=== PATIENT | male | born 1940 | race Hispanic/Latino ===

== ENCOUNTER → 2018-01-21 | Outpatient (CLI) | payer OTHER | END | disposition home or self-care (01) | LOC: SHCH 09:24 | PROVIDERS: ATTEND Internal Medicine Cardiovascular Disease | DX: R09.89 Other specified symptoms and signs involving the circulatory and respiratory systems (principal) | CPT/HCPCS: 93880 ==

== ENCOUNTER → 2018-01-27 | Outpatient (CLI) | payer OTHER | END | disposition home or self-care (01) | LOC: EDUNIT# 11:00 → SHCH 11:22 | PROVIDERS: ATTEND Internal Medicine Cardiovascular Disease | DX: I34.0 Nonrheumatic mitral (valve) insufficiency (principal); I35.8 Other nonrheumatic aortic valve disorders | CPT/HCPCS: 93306 ==

== ENCOUNTER 2018-05-08 06:38 | Day surgery (SDC) | payer OTHER ==
[2018-05-05 11:35] LABS: BASOPHILS % (AUTO) 0.8 % (0.0-5.0); EOSINOPHILS % (AUTO) 3.9 % (0.0-8.0); HEMATOCRIT 36.8 % (42-54); LYMPHOCYTES % (AUTO) 15.3 % (21.0-51.0); MEAN CORPUSCULAR HEMOGLOBIN 28.5 pg (27.0-33.0); MEAN CORPUSCULAR HGB CONC 32.3 g/dL (32.0-36.0); MEAN CORPUSCULAR VOLUME 88.2 fL (79-99); MONOCYTES % (AUTO) 7.9 % (3.0-13.0); NEUTROPHILS % (AUTO) 72.1 % (40.0-77.0); PLATELET COUNT (AUTO) 165 K/uL (130-400); RED BLOOD CELL COUNT(AUTO) 4.17 MIL/uL (4.50-6.20); RED CELL DISTRIBUTION WIDTH 14.6 % (11.0-15.5); WHITE BLOOD COUNT (AUTO) 8.5 K/uL (4.8-10.8)
[2018-05-05 11:41] VITALS: BP 119/74
[2018-05-05 11:55] LABS: CREATININE 1.6 mg/dL (0.5-1.5); POTASSIUM 4.4 mmol/L (3.5-5.1)
[2018-05-05 12:41] LABS: APPEARANCE,URINE Cloudy (CLEAR); BILIRUBIN,URINE Negative (NEGATIVE); COLOR,URINE Yellow (YELLOW); GLUCOSE, URINE (UA) Negative (NEGATIVE); KETONES,URINE Negative (NEGATIVE); LEUKOCYTE ESTERASE ,URINE Large (NEGATIVE); NITRATE,URINE Positive (NEGATIVE); OCCULT BLOOD,URINE Large (NEGATIVE); PH,URINE 5.5 (5.0-8.0); PROTEIN,URINE 300 (NEGATIVE); UROBILINOGEN,URINE 0.2 mg/dL (0.2-1.0)
[2018-05-05 12:52] LABS: BACTERIA,URINE Moderate /HPF (None Seen); SQUAMOUS EPITHELIAL CELL,UR Rare /HPF (0-2); WBC,URINE 26-50 /HPF (0-1)
[~2018-05-08] VITALS: Ht 167.6 cm; Wt 85.9 kg
[2018-05-08] VITALS (18 sets, daily range): BP systolic 105–132; BP diastolic 63–83
[~2018-05-08 06:38] MED LIST: APIX2.5T PO; ATOR20TA65 PO; CHOL100040 PO; DOCU100T PO; FERS325 PO; FINA5TAB41 PO; GABA-529 PO; GENTAMICIN 80 MG/NS 100 ML PB 100 ML IV SCH; GLUC-236 PO; LATA7.5D OU; LEVO500T2 PO; LEVO50TA11 PO; METO25TA6 PO; MULTIVITAMIN PO; OMEP20TA25 PO; PREG75 PO; SERT100T12 PO; TAMS0.4C32 PO
[2018-05-08] MEDS: CEFTRIAXONE SODIUM 1 GM IVP SCH ×2 (08:00→10:25)
[2018-05-08] MEDS ORDERED: SODIUM CHLORIDE 0.9% 1000ML 1,000 ML IV ONE (08:15)
[2018-05-08] MEDS ORDERED: PROPOFOL 10 MG/ML 20ML VIAL IV ONE (08:58)
[2018-05-08] MEDS ORDERED: ONDANSETRON HCL 4 MG/2 ML VIAL ONE (08:58)
[2018-05-08] MEDS ORDERED: MIDAZOLAM HCL 1 MG/ML 2ML VIAL ONE (08:58)
[2018-05-08] MEDS ORDERED: DEXAMETHASONE SOD PHOSPHATE 10MG/ML 1ML VIAL ONE (08:58)
[2018-05-08] MEDS ORDERED: LIDOCAINE PF 2% 5ML ABBOJECT ONE (08:58)
[2018-05-08] MEDS ORDERED: NEOSTIGMINE 5MG/5ML SYR IV ONE (08:59)
[2018-05-08] MEDS ORDERED: FENTANYL CITRATE PF 50 MCG/1 ML 2ML VIAL ONE (08:59)
[2018-05-08] MEDS ORDERED: ROCURONIUM BROMIDE 10MG/1ML 5ML VL ONE (09:05)
[2018-05-08] MEDS ORDERED: KETAMINE 50MG/ML SYRINGE 50 MG/ML DISP.SYRIN IV ONE (10:13)
[2018-05-08] MEDS ORDERED: EPHEDRINE SULFATE 50 MG/ML AMPULE ONE (10:16)
== END 2018-05-08 15:25 | disposition home or self-care (01) ==
LOC: DAH 06:38
PROVIDERS: ATTEND Urology
DX: N21.0 Calculus in bladder (principal); N40.1 Benign prostatic hyperplasia with lower urinary tract symptoms; R33.8 Other retention of urine; R31.9 Hematuria, unspecified; E11.9 Type 2 diabetes mellitus without complications; I48.2 Chronic atrial fibrillation; I10 Essential (primary) hypertension; G51.0 Bell's palsy; E78.5 Hyperlipidemia, unspecified; Z90.49 Acquired absence of other specified parts of digestive tract; Z98.890 Other specified postprocedural states
CPT/HCPCS: 36415; 52318; 52648; 71045; 80048; 81001; 82360; 82948 ×2; 85025; 85610; 85730; 87077; 87088; 87186; 88300; 88305; 93005; 96365; A4218; A4354; A4358; A4600; C1758; J0696; J1100; J1580; J2001; J2250; J2405; J2704; J2710; J3010; J3490 ×3; J7030; J7120

== ENCOUNTER 2019-05-23 13:21 | Observation (INO) | payer OTHER ==
[~2019-05-23] VITALS: Ht 170.2 cm; Wt 85.5 kg
[~2019-05-23 13:21] MED LIST changes: -APIX2.5T PO; -GENTAMICIN 80 MG/NS 100 ML PB 100 ML IV SCH
[2019-05-23 13:59] LABS: EOSINOPHILS % (AUTO) 0.6 % (0.0-8.0); HEMATOCRIT 47.1 % (42-54); LYMPHOCYTES % (AUTO) 14.1 % (21.0-51.0); MEAN CORPUSCULAR HEMOGLOBIN 30.8 pg (27.0-33.0); MEAN CORPUSCULAR HGB CONC 34.3 g/dL (32.0-36.0); MONOCYTES % (AUTO) 7.4 % (3.0-13.0); NEUTROPHILS % (AUTO) 76.9 % (40.0-77.0); NUCLEATED RED BLOOD CELLS 0.1 % (0.0-0.19); PLATELET COUNT (AUTO) 145 K/uL (130-400); RED BLOOD CELL COUNT(AUTO) 5.23 MIL/uL (4.50-6.20); RED CELL DISTRIBUTION WIDTH 14.3 % (11.0-15.5); WHITE BLOOD COUNT (AUTO) 11.6 K/uL (4.8-10.8)
[2019-05-23 14:03] LABS: INR 1.07 (0.85-1.15); PARTIAL THROMBOPLASTIN TIME 31.1 SEC (26.3-35.5); PROTHROMBIN TIME 11.2 SEC (9.6-11.6)
[2019-05-23 14:05] LABS: CARBON DIOXIDE 29 mmol/L (21-32); CHLORIDE 100 mmol/L (101-111); CREATININE 1.5 mg/dL (0.5-1.5); GLOMERULAR FILTR. RATE CALC 48 mL/min (>60); GLUCOSE,RANDOM 124 mg/dL (70-105); POTASSIUM 4.4 mmol/L (3.5-5.1); SODIUM SERUM 134 mmol/L (136-145); UREA NITROGEN, BLOOD 32 mg/dL (7-18)
[2019-05-23 14:11] LABS: ALBUMIN 4.2 g/dL (3.5-5.0); BILIRUBIN,TOTAL 0.9 mg/dL (0.2-1.0); TOTAL PROTEIN, SERUM 8.1 g/dL (6.0-8.3)
[2019-05-23 14:25] LABS: ASPARTATE AMINOTRANSFERASE 26 U/L (10-37)
[2019-05-23 14:54] LABS: ALANINE AMINOTRANSFERASE < 12 U/L (12-78)
[2019-05-23] MEDS ORDERED: LACTATED RINGERS 1000ML 1,000 ML IV ONE (18:19)
[2019-05-23] MEDS: LACTATED RINGERS 1000ML 1,000 ML IV SCH (18:30)
[2019-05-23] MEDS ORDERED: ACETAMINOPHEN 325 MG TAB PO PRN (18:30)
[2019-05-23] MEDS ORDERED: ONDANSETRON HCL 4 MG/2 ML VIAL IVP PRN (18:30)
[2019-05-23] MEDS ORDERED: PANTOPRAZOLE 40 MG/VIAL IVP SCH (19:00)
[2019-05-23] MEDS ORDERED: APIX2.5T PO (20:34)
[2019-05-23] MEDS ORDERED: METO25TA3 PO (20:34)
[2019-05-23] MEDS ORDERED: GLIP2.5T2 PO (20:34)
[2019-05-23 20:58] VITALS: BP 165/109
[2019-05-23 22:08] LABS: HEMATOCRIT 42.5 % (42-54)
[2019-05-23 23:00] VITALS: BP 157/84
[2019-05-23] MEDS ORDERED: FLU VACC QS2019-20 36MOS UP/PF 60 MCG/0.5 ML ML IM ONE (23:15)
[2019-05-24 03:00] VITALS: BP 151/80
[2019-05-24 06:26] LABS: HEMATOCRIT 44.4 % (42-54); MEAN CORPUSCULAR HEMOGLOBIN 30.6 pg (27.0-33.0); MEAN CORPUSCULAR HGB CONC 33.6 g/dL (32.0-36.0); MEAN CORPUSCULAR VOLUME 91.1 fL (79-99); NUCLEATED RED BLOOD CELLS 0.1 % (0.0-0.19); PLATELET COUNT (AUTO) 112 K/uL (130-400); RED BLOOD CELL COUNT(AUTO) 4.88 MIL/uL (4.50-6.20); RED CELL DISTRIBUTION WIDTH 14.2 % (11.0-15.5)
[2019-05-24] MEDS: LACTATED RINGERS 1000ML 1,000 ML IV SCH (07:09)
[2019-05-24 08:00] VITALS: BP 143/93
[2019-05-24] MEDS ORDERED: PANTOPRAZOLE 40 MG/VIAL IVP SCH (09:00)
[2019-05-24 09:02] LABS: CREATININE 1.5 mg/dL (0.5-1.5); MAGNESIUM 1.7 mg/dL (1.80-2.40); PHOSPHORUS 3.7 mg/dL (2.5-4.9)
[2019-05-24 09:46] LABS: HEMATOCRIT 43.9 % (42-54)
[2019-05-24] MEDS: PANTOPRAZOLE SODIUM 40 MG TABLET.DR PO SCH ×2 (10:45→17:00)
[2019-05-24 10:47] LABS: POTASSIUM 4.5 mmol/L (3.5-5.1)
[2019-05-24 11:19] LABS: BASOPHILS % (AUTO) 1.2 % (0.0-5.0); EOSINOPHILS % (AUTO) 0.5 % (0.0-8.0); LYMPHOCYTES % (AUTO) 9.8 % (21.0-51.0); MEAN CORPUSCULAR HEMOGLOBIN 30.8 pg (27.0-33.0); MEAN CORPUSCULAR HGB CONC 34.1 g/dL (32.0-36.0); MEAN CORPUSCULAR VOLUME 90.4 fL (79-99); MONOCYTES % (AUTO) 6.9 % (3.0-13.0); NEUTROPHILS % (AUTO) 81.6 % (40.0-77.0); NUCLEATED RED BLOOD CELLS 0.1 % (0.0-0.19); PLATELET COUNT (AUTO) 116 K/uL (130-400); RED BLOOD CELL COUNT(AUTO) 4.87 MIL/uL (4.50-6.20); WHITE BLOOD COUNT (AUTO) 8.3 K/uL (4.8-10.8)
[2019-05-24 11:36] LABS: INR 1.07 (0.85-1.15); PROTHROMBIN TIME 11.2 SEC (9.6-11.6)
[2019-05-24 11:46] LABS: CREATININE 1.4 mg/dL (0.5-1.5)
[2019-05-24 11:50] VITALS: BP 138/90
[2019-05-24 12:49] LABS: POTASSIUM 4.2 mmol/L (3.5-5.1)
[2019-05-24 15:34] LABS: HEMATOCRIT 43.5 % (42-54)
--- NOTE | 2019-05-24 15:37 | NUR ---
INITIAL: Met with pt and son Shaheed this afternoon to discuss dcp. Per pt/son prior to admission pt was living alone. He uses a rollator for ambulation and is independent w ADLs. Pt has at home a sh chair and cane. Pt feels safe and comfortable to return home at mt. CM to continue to follow and wait for Md recommendations. Addendum: 05/24/19 at 1538 by LUCY DEAN Amended: Links added.
[2019-05-24 16:00] VITALS: BP 151/87
[2019-05-24] MEDS ORDERED: PEG 3350/NA SULF,BICARB,CL/KCL 4000 ML SOLN PO SCH (17:00)
[2019-05-24] MEDS ORDERED: GLUCAGON 1MG KIT 1 MG ML IM PRN (17:15)
[2019-05-24] MEDS ORDERED: POTASSIUM CHLORIDE 20 MEQ ERTAB PO PRN (17:15)
[2019-05-24] MEDS ORDERED: DEXTROSE 50%-WATER 50 ML DISP.SYRIN IV PRN (17:15)
[2019-05-24] MEDS ORDERED: POTASSIUM CHLORIDE 10% ELIXIR 20 MEQ/15 ML UDCUP PO PRN (17:15)
[2019-05-24] MEDS ORDERED: POTASSIUM CHLORIDE 20MEQ/100ML 100 ML IV PRN (17:15)
[2019-05-24 20:00] VITALS: BP 167/90
[2019-05-24] MEDS: METOPROLOL TARTRATE 25 MG TAB PO SCH (20:54)
[2019-05-24] MEDS: ATORVASTATIN CALCIUM 20 MG TABLET PO SCH (20:54)
[2019-05-24] MEDS: SERTRALINE HCL 50 MG TABLET PO SCH (20:54)
[2019-05-24] MEDS: INSULIN HUMULIN R 100 UNIT/ML 3ML SQ SCH (21:00)
[2019-05-24 21:20] LABS: HEMATOCRIT 44.1 % (42-54)
[2019-05-25] VITALS (13 sets, daily range): BP systolic 116–152; BP diastolic 68–96
[2019-05-25] MEDS: LACTATED RINGERS 1000ML 1,000 ML IV SCH ×2 (03:57→14:58)
[2019-05-25 05:29] LABS: HEMATOCRIT 45.1 % (42-54); MEAN CORPUSCULAR HGB CONC 34.3 g/dL (32.0-36.0); MEAN CORPUSCULAR VOLUME 90.4 fL (79-99); PLATELET COUNT (AUTO) 127 K/uL (130-400); RED BLOOD CELL COUNT(AUTO) 4.99 MIL/uL (4.50-6.20); RED CELL DISTRIBUTION WIDTH 14.2 % (11.0-15.5); WHITE BLOOD COUNT (AUTO) 7.3 K/uL (4.8-10.8)
[2019-05-25 05:44] LABS: CREATININE 1.5 mg/dL (0.5-1.5); POTASSIUM 4.5 mmol/L (3.5-5.1)
[2019-05-25] MEDS: INSULIN HUMULIN R 100 UNIT/ML 3ML SQ SCH ×4 (06:36→21:00)
[2019-05-25] MEDS: PANTOPRAZOLE SODIUM 40 MG TABLET.DR PO SCH ×2 (06:36→17:57)
[2019-05-25] MEDS: Cholecalciferol (Vitamin D3) 1,000 UNIT PO SCH (09:00)
[2019-05-25] MEDS: LEVOTHYROXINE 50 MCG TABLET PO SCH (09:00)
[2019-05-25] MEDS: METOPROLOL TARTRATE 25 MG TAB PO SCH ×2 (09:00→22:51)
[2019-05-25 09:04] LABS: HEMATOCRIT 43.5 % (42-54)
--- NOTE | 2019-05-25 11:04 | NUR ---
COLONOSCOPY Taken for procedure at this time.
[2019-05-25] MEDS ORDERED: PROPOFOL 10 MG/ML 20ML VIAL IV ONE (12:14)
--- NOTE | 2019-05-25 14:00 | NUR ---
CONFIRMED DCP PLAN W DAUGHTER SPOKE TO KEZIA AT [facility]- PT LIVES ALONE BUT RIGHT NEXT DOOR TO SON; BOTH SON AND DAUGHTER VIGILANT AND SEE PT OFTEN THROUGHOUT THE DAY- BOTH FEEL COMFORTABLE TO PROVIDE EXTRA CARE IF NEEDED DCP REMAINS HOME
--- NOTE | 2019-05-25 14:00 | NUR ---
CONFIRMED DC PLAN WITH DAUGHTER DAUGHTER KEZIA STATES TH PT, ALTHOUGH HE LIVES ALONE, IS SEEN FREQUENTLY THROUGHOUT THE DAY BY HERSELF AND HER BROTHER- PTS HOME IS RIGHT NEXT DOOR. SHE FEELS ABLE TO PROVIDE INCREASED MONITORING IF NEEDED. DCP REMAINS TO HOME
[2019-05-25 15:53] LABS: BASOPHILS % (AUTO) 0.8 % (0.0-5.0); EOSINOPHILS % (AUTO) 0.9 % (0.0-8.0); HEMATOCRIT 42.8 % (42-54); LYMPHOCYTES % (AUTO) 11.4 % (21.0-51.0); MEAN CORPUSCULAR HEMOGLOBIN 30.6 pg (27.0-33.0); MEAN CORPUSCULAR HGB CONC 33.9 g/dL (32.0-36.0); MEAN CORPUSCULAR VOLUME 90.2 fL (79-99); MONOCYTES % (AUTO) 7.9 % (3.0-13.0); PLATELET COUNT (AUTO) 124 K/uL (130-400); RED BLOOD CELL COUNT(AUTO) 4.75 MIL/uL (4.50-6.20); RED CELL DISTRIBUTION WIDTH 14.1 % (11.0-15.5)
[2019-05-25 16:06] LABS: CREATININE 1.4 mg/dL (0.5-1.5); POTASSIUM 4.1 mmol/L (3.5-5.1)
[2019-05-25 16:18] LABS: INR 1.06 (0.85-1.15); PROTHROMBIN TIME 11.1 SEC (9.6-11.6)
--- NOTE | 2019-05-25 16:31 | NUR ---
CARDIOLOGY CONSULT Dr. Cardozo was notified of consult that patient has AFib and has GI bleed and that his eliquis is on hold. He took patient's name and room number.
[2019-05-25] MEDS ORDERED: PEG 3350/NA SULF,BICARB,CL/KCL 4000 ML SOLN PO SCH (17:00)
--- NOTE | 2019-05-25 18:02 | NUR ---
GOLYTELY Started preparation. Patient compliant. Drinking golytely with no issues.
[2019-05-25 22:11] LABS: HEMATOCRIT 43.7 % (42-54)
[2019-05-25] MEDS: SERTRALINE HCL 50 MG TABLET PO SCH (22:50)
[2019-05-25] MEDS: ATORVASTATIN CALCIUM 20 MG TABLET PO SCH (22:51)
[2019-05-26] VITALS (23 sets, daily range): BP systolic 99–161; BP diastolic 62–99
[2019-05-26] MEDS: LACTATED RINGERS 1000ML 1,000 ML IV SCH ×2 (04:12→13:35)
[2019-05-26] MEDS: PANTOPRAZOLE SODIUM 40 MG TABLET.DR PO SCH ×2 (05:49→13:34)
[2019-05-26] MEDS: INSULIN HUMULIN R 100 UNIT/ML 3ML SQ SCH ×4 (05:50→21:00)
--- NOTE | 2019-05-26 07:50 | NUR ---
COLONOSCOPY Patient taken for procedure this morning. Stable.
[2019-05-26] MEDS: Cholecalciferol (Vitamin D3) 1,000 UNIT PO SCH (09:00)
[2019-05-26] MEDS: LEVOTHYROXINE 50 MCG TABLET PO SCH (09:00)
[2019-05-26] MEDS ORDERED: PROPOFOL 10 MG/ML 20ML VIAL IV ONE ×2 (09:17)
[2019-05-26] MEDS: METOPROLOL TARTRATE 25 MG TAB PO SCH ×2 (13:34→21:49)
[2019-05-26 15:24] LABS: HEMATOCRIT 41.8 % (42-54)
[2019-05-26] MEDS: ATORVASTATIN CALCIUM 20 MG TABLET PO SCH (21:49)
[2019-05-26] MEDS: SERTRALINE HCL 50 MG TABLET PO SCH (21:49)
[2019-05-27] MEDS: LACTATED RINGERS 1000ML 1,000 ML IV SCH (02:45)
[2019-05-27 03:28] VITALS: BP 140/78
[2019-05-27 06:06] LABS: BASOPHILS % (AUTO) 0.6 % (0.0-5.0); EOSINOPHILS % (AUTO) 1.6 % (0.0-8.0); HEMATOCRIT 43.2 % (42-54); LYMPHOCYTES % (AUTO) 8.7 % (21.0-51.0); MEAN CORPUSCULAR HEMOGLOBIN 30.4 pg (27.0-33.0); MEAN CORPUSCULAR HGB CONC 33.7 g/dL (32.0-36.0); MEAN CORPUSCULAR VOLUME 90.2 fL (79-99); MONOCYTES % (AUTO) 9.1 % (3.0-13.0); PLATELET COUNT (AUTO) 107 K/uL (130-400); RED BLOOD CELL COUNT(AUTO) 4.79 MIL/uL (4.50-6.20); WHITE BLOOD COUNT (AUTO) 7.7 K/uL (4.8-10.8)
[2019-05-27] MEDS: INSULIN HUMULIN R 100 UNIT/ML 3ML SQ SCH ×3 (07:30→12:30)
--- NOTE | 2019-05-27 07:30 | NUR ---
as per report from pm nurse can be discharged and will have a colonoscopy as outpatient.
[2019-05-27 08:00] VITALS: BP 149/85
--- NOTE | 2019-05-27 08:00 | NUR ---
AM SHIFT ASSESSMENT.
[2019-05-27] MEDS: Cholecalciferol (Vitamin D3) 1,000 UNIT PO SCH (09:00)
[2019-05-27] MEDS: LEVOTHYROXINE 50 MCG TABLET PO SCH (09:00)
[2019-05-27] MEDS: PANTOPRAZOLE SODIUM 40 MG TABLET.DR PO SCH (09:38)
[2019-05-27] MEDS: METOPROLOL TARTRATE 25 MG TAB PO SCH (09:38)
[2019-05-27] MEDS ORDERED: PANT40TA PO (09:47)
[2019-05-27 11:52] VITALS: BP 151/88
--- NOTE | 2019-05-27 12:00 | NUR ---
has had no evidence of any rectal bleeding.
--- NOTE | 2019-05-27 14:20 | NUR ---
DISCHARGED USING TEACH BACK. RX. FOR PROTONIX CALLED IN TO [facility]. SEVERAL MD. APPT. MADE FOR PT. PT. AND FAMILY MEMBER WERE GIVEN INST AND VERBALIZED UNDERSTANDING.
== END 2019-05-27 15:10 | disposition home or self-care (01) ==
LOC: EDH 13:21 → INTOOBSV 17:10 → OBSVTOIN 17:10 → EDHIP 17:10 → 3DH 20:14
PROVIDERS: ADMIT Internal Medicine Critical Care Medicine; ATTEND Internal Medicine Critical Care Medicine
DX: K92.2 Gastrointestinal hemorrhage, unspecified (principal); I48.20 Chronic atrial fibrillation, unspecified; D62 Acute posthemorrhagic anemia; K62.1 Rectal polyp; D12.3 Benign neoplasm of transverse colon; K64.8 Other hemorrhoids; E78.5 Hyperlipidemia, unspecified; E78.00 Pure hypercholesterolemia, unspecified; E11.9 Type 2 diabetes mellitus without complications; R19.7 Diarrhea, unspecified; I10 Essential (primary) hypertension; N40.0 Benign prostatic hyperplasia without lower urinary tract symptoms; Z87.891 Personal history of nicotine dependence; Z79.01 Long term (current) use of anticoagulants; Z79.899 Other long term (current) drug therapy; Z88.8 Allergy status to other drugs, medicaments and biological substances; Z23 Encounter for immunization
CPT/HCPCS: 36415 ×5; 45378; 45380; 45385; 74176; 80048 ×4; 80053; 82270; 82948 ×11; 83735; 84100; 85014 ×8; 85018 ×8; 85025 ×4; 85027 ×2; 85610 ×3; 85730; 88305; 90471; 96360; 96361 ×4; 96372; 99284; A4215; A4221; A4600; A4606; A4615 ×2; G0378 ×94; J1815; J2704 ×3; J7120 ×7; C9113; G0008

== ENCOUNTER 2021-01-21 17:23 | Inpatient (IN) | payer OTHER ==
[~2021-01-21] VITALS: Ht 167.6 cm; Wt 83.3 kg
[~2021-01-21 17:23] MED LIST changes: +APIX2.5T PO; -DOCU100T PO; -FERS325 PO; -FINA5TAB41 PO; -GABA-529 PO; +GLIP2.5T2 PO; -GLUC-236 PO; -LEVO500T2 PO; +METO25TA3 PO; -METO25TA6 PO; -MULTIVITAMIN PO; -OMEP20TA25 PO; +PANT40TA PO; -PREG75 PO; +SERT-440 PO; -SERT100T12 PO; -TAMS0.4C32 PO
[2021-01-21 18:13] VITALS: BP 159/98
[2021-01-21 18:27] LABS: BASOPHILS % (AUTO) 0.4 % (0.0-5.0); EOSINOPHILS % (AUTO) 0.6 % (0.0-8.0); HEMATOCRIT 47.8 % (42-54); LYMPHOCYTES % (AUTO) 10.9 % (21.0-51.0); MEAN CORPUSCULAR HEMOGLOBIN 29.9 pg (27.0-33.0); MEAN CORPUSCULAR HGB CONC 33.1 g/dL (32.0-36.0); MEAN CORPUSCULAR VOLUME 90.5 fL (79-99); MONOCYTES % (AUTO) 6.8 % (3.0-13.0); NEUTROPHILS % (AUTO) 80.7 % (40.0-77.0); PLATELET COUNT (AUTO) 142 K/uL (130-400); RED BLOOD CELL COUNT(AUTO) 5.28 MIL/uL (4.50-6.20); RED CELL DISTRIBUTION WIDTH 13.7 % (11.0-15.5); WHITE BLOOD COUNT (AUTO) 12.4 K/uL (4.8-10.8)
[2021-01-21] MEDS ORDERED: PANTOPRAZOLE 40 MG/VIAL IVP ONE (18:30)
[2021-01-21] MEDS ORDERED: SODIUM CHLORIDE 0.9% 500ML 500 ML IV ONE ×2 (18:30→18:55)
[2021-01-21] MEDS ORDERED: ONDANSETRON HCL 4 MG/2 ML VIAL IVP ONE (18:30)
[2021-01-21 18:42] LABS: CREATININE 1.6 mg/dL (0.5-1.5)
[2021-01-21 18:57] LABS: INR 1.09 (0.85-1.15); PROTHROMBIN TIME 11.8 SEC (9.6-11.6)
[2021-01-21 18:59] LABS: ALBUMIN 4.1 g/dL (3.5-5.0); BILIRUBIN,TOTAL 0.7 mg/dL (0.2-1.0); TOTAL PROTEIN, SERUM 8.2 g/dL (6.0-8.3)
[2021-01-21 19:01] LABS: CREATINE KINASE, TOTAL 62 U/L (21-232); MYOGLOBIN 47 ng/mL (10-92); TROPONIN I < 0.04 ng/mL (0.00-0.06)
[2021-01-21 20:17] LABS: APPEARANCE,URINE Clear (CLEAR); BILIRUBIN,URINE Negative (NEGATIVE); COLOR,URINE Yellow (YELLOW); GLUCOSE, URINE (UA) Negative (NEGATIVE); KETONES,URINE Negative (NEGATIVE); LEUKOCYTE ESTERASE ,URINE Negative (NEGATIVE); NITRATE,URINE Negative (NEGATIVE); OCCULT BLOOD,URINE Negative (NEGATIVE); PROTEIN,URINE Negative (NEGATIVE); UROBILINOGEN,URINE 0.2 mg/dL (0.2-1.0)
[2021-01-21 20:18] VITALS: BP 153/97
[2021-01-21] MEDS ORDERED: ONDANSETRON HCL 4 MG/2 ML VIAL IV PRN (21:45)
[2021-01-21] MEDS ORDERED: HYDRALAZINE HCL 20 MG/ML VIAL IV PRN (21:45)
[2021-01-21] MEDS: SODIUM CHLORIDE 0.9% 1000ML 1,000 ML IV SCH (21:54)
[2021-01-21 22:04] LABS: HEMOGLOBIN A1C 7.4 % (4.0-6.0)
[2021-01-21 22:51] LABS: BASOPHILS % (AUTO) 0.5 % (0.0-5.0); EOSINOPHILS % (AUTO) 0.6 % (0.0-8.0); HEMATOCRIT 43.4 % (42-54); LYMPHOCYTES % (AUTO) 12.7 % (21.0-51.0); MEAN CORPUSCULAR HGB CONC 32.9 g/dL (32.0-36.0); MONOCYTES % (AUTO) 7.7 % (3.0-13.0); NEUTROPHILS % (AUTO) 77.9 % (40.0-77.0); PLATELET COUNT (AUTO) 105 K/uL (130-400); RED BLOOD CELL COUNT(AUTO) 4.77 MIL/uL (4.50-6.20); RED CELL DISTRIBUTION WIDTH 13.7 % (11.0-15.5); WHITE BLOOD COUNT (AUTO) 10.1 K/uL (4.8-10.8)
[2021-01-21] MEDS ORDERED: TRAZ-187 PO (23:06)
[2021-01-21] MEDS ORDERED: LISI-809 PO (23:06)
[2021-01-21 23:46] LABS: INR 1.11 (0.85-1.15)
[2021-01-21 23:48] LABS: PARTIAL THROMBOPLASTIN TIME 32.7 SEC (26.3-35.5)
[2021-01-22] VITALS (9 sets, daily range): BP systolic 125–168; BP diastolic 68–100
[2021-01-22] MEDS: INSULIN HUMULIN R 100 UNIT/ML 3ML SQ SCH ×5 (00:15→23:27)
[2021-01-22 05:42] LABS: BASOPHILS % (AUTO) 0.6 % (0.0-5.0); HEMATOCRIT 42.7 % (42-54); LYMPHOCYTES % (AUTO) 14.1 % (21.0-51.0); MEAN CORPUSCULAR VOLUME 90.9 fL (79-99); MONOCYTES % (AUTO) 8.7 % (3.0-13.0); NEUTROPHILS % (AUTO) 74.9 % (40.0-77.0); PLATELET COUNT (AUTO) 101 K/uL (130-400); RED CELL DISTRIBUTION WIDTH 13.6 % (11.0-15.5); WHITE BLOOD COUNT (AUTO) 7.1 K/uL (4.8-10.8)
[2021-01-22 05:56] LABS: ALBUMIN 3.4 g/dL (3.5-5.0); BILIRUBIN,DIRECT 0.2 mg/dL (0.0-0.3); BILIRUBIN,TOTAL 0.7 mg/dL (0.2-1.0); CREATININE 1.3 mg/dL (0.5-1.5); POTASSIUM 4.3 mmol/L (3.5-5.1); TOTAL PROTEIN, SERUM 6.7 g/dL (6.0-8.3)
[2021-01-22] MEDS ORDERED: PANTOPRAZOLE SODIUM 80 MG in SODIUM CHLORIDE 0.9% 100 ML IV SCH (09:00)
[2021-01-22] MEDS ORDERED: PANTOPRAZOLE 40 MG/VIAL ONE (09:30)
[2021-01-22] MEDS ORDERED: SODIUM CHLORIDE 0.9% 100 ML ONE (09:31)
[2021-01-22] MEDS: LACTULOSE 20 GM/30 ML UDCUP PO SCH ×2 (11:09→21:18)
[2021-01-22] MEDS: SODIUM CHLORIDE 0.9% 1000ML 1,000 ML IV SCH (15:01)
[2021-01-22] MEDS: 0.9% SODIUM CHLORIDE 50 ML IV BAG IV SCH ×2 (15:40→17:06)
[2021-01-22] MEDS ORDERED: ZOSYN 3.375GM+NS 50ML 50 ML IV ONE (15:46)
[2021-01-22] MEDS ORDERED: SODIUM CHLORIDE 0.9% 50 ML IV ONE (15:46)
[2021-01-22] MEDS: PIP/TAZ ZOSYN 3.375G 3.375 GM VIAL IVPB SCH ×2 (15:49→17:06)
[2021-01-22] MEDS ORDERED: PEG 3350/NA SULF,BICARB,CL/KCL 4000 ML SOLN PO SCH (17:30)
[2021-01-22 23:17] LABS: BASOPHILS % (AUTO) 0.4 % (0.0-5.0); EOSINOPHILS % (AUTO) 0.9 % (0.0-8.0); HEMATOCRIT 45.7 % (42-54); LYMPHOCYTES % (AUTO) 9.8 % (21.0-51.0); MEAN CORPUSCULAR HEMOGLOBIN 29.8 pg (27.0-33.0); MEAN CORPUSCULAR VOLUME 90.3 fL (79-99); NEUTROPHILS % (AUTO) 80.5 % (40.0-77.0); PLATELET COUNT (AUTO) 117 K/uL (130-400); RED BLOOD CELL COUNT(AUTO) 5.06 MIL/uL (4.50-6.20); WHITE BLOOD COUNT (AUTO) 9.6 K/uL (4.8-10.8)
[2021-01-23] VITALS (19 sets, daily range): BP systolic 110–178; BP diastolic 72–94
[2021-01-23] MEDS ORDERED: PANTOPRAZOLE 40 MG/VIAL ONE (00:34)
[2021-01-23] MEDS ORDERED: SODIUM CHLORIDE 0.9% 100 ML ONE (00:34)
[2021-01-23] MEDS: SODIUM CHLORIDE 0.9% 1000ML 1,000 ML IV SCH ×3 (00:40→20:13)
[2021-01-23] MEDS ORDERED: ZOSYN 3.375GM+NS 50ML 50 ML IV ONE (04:47)
[2021-01-23] MEDS: 0.9% SODIUM CHLORIDE 50 ML IV BAG IV SCH (04:54)
[2021-01-23 05:19] LABS: BASOPHILS % (AUTO) 0.4 % (0.0-5.0); EOSINOPHILS % (AUTO) 0.9 % (0.0-8.0); LYMPHOCYTES % (AUTO) 7.8 % (21.0-51.0); MEAN CORPUSCULAR HEMOGLOBIN 29.1 pg (27.0-33.0); MEAN CORPUSCULAR HGB CONC 32.8 g/dL (32.0-36.0); MEAN CORPUSCULAR VOLUME 88.6 fL (79-99); MONOCYTES % (AUTO) 6.9 % (3.0-13.0); NEUTROPHILS % (AUTO) 83.5 % (40.0-77.0); PLATELET COUNT (AUTO) 108 K/uL (130-400); RED BLOOD CELL COUNT(AUTO) 5.19 MIL/uL (4.50-6.20); RED CELL DISTRIBUTION WIDTH 13.8 % (11.0-15.5); WHITE BLOOD COUNT (AUTO) 8.4 K/uL (4.8-10.8)
[2021-01-23] MEDS: PIP/TAZ ZOSYN 3.375G 3.375 GM VIAL IVPB SCH (05:26)
[2021-01-23 05:31] LABS: CREATININE 1.2 mg/dL (0.5-1.5); POTASSIUM 3.8 mmol/L (3.5-5.1)
[2021-01-23] MEDS: INSULIN HUMULIN R 100 UNIT/ML 3ML SQ SCH ×3 (05:44→20:17)
[2021-01-23] MEDS ORDERED: PHARMACY COMMUNICATION MISC SCH (06:45)
[2021-01-23] MEDS: PANTOPRAZOLE 40 MG/VIAL IVP SCH (08:25)
[2021-01-23] MEDS: ZOSYN 3.375GM+NS 50ML 50 ML IV SCH ×3 (08:25→22:17)
[2021-01-23] MEDS: LACTULOSE 20 GM/30 ML UDCUP PO SCH ×2 (08:47→20:12)
[2021-01-23] MEDS ORDERED: PROPOFOL 10 MG/ML 20ML VIAL IV ONE (13:19)
[2021-01-23] MEDS ORDERED: LIDOCAINE PF 100MG/5ML (2%) SYRINGE 5ML ONE (13:19)
[2021-01-23] MEDS ORDERED: KETOROLAC 15MG/ML VIAL (15MG/ML) IV ONE (14:45)
[2021-01-23 15:17] LABS: BASOPHILS % (AUTO) 0.3 % (0.0-5.0); EOSINOPHILS % (AUTO) 0.7 % (0.0-8.0); HEMATOCRIT 48.3 % (42-54); LYMPHOCYTES % (AUTO) 4.6 % (21.0-51.0); MEAN CORPUSCULAR HEMOGLOBIN 29.8 pg (27.0-33.0); MEAN CORPUSCULAR HGB CONC 33.1 g/dL (32.0-36.0); MEAN CORPUSCULAR VOLUME 89.9 fL (79-99); MONOCYTES % (AUTO) 6.2 % (3.0-13.0); NEUTROPHILS % (AUTO) 87.6 % (40.0-77.0); PLATELET COUNT (AUTO) 117 K/uL (130-400); RED BLOOD CELL COUNT(AUTO) 5.37 MIL/uL (4.50-6.20); WHITE BLOOD COUNT (AUTO) 9.9 K/uL (4.8-10.8)
[2021-01-24 00:08] VITALS: BP 138/82
[2021-01-24 04:08] VITALS: BP 135/85
[2021-01-24 05:09] LABS: HEMATOCRIT 42.4 % (42-54); MEAN CORPUSCULAR HEMOGLOBIN 28.9 pg (27.0-33.0); MEAN CORPUSCULAR HGB CONC 32.1 g/dL (32.0-36.0); RED BLOOD CELL COUNT(AUTO) 4.71 MIL/uL (4.50-6.20); RED CELL DISTRIBUTION WIDTH 13.8 % (11.0-15.5); WHITE BLOOD COUNT (AUTO) 7.2 K/uL (4.8-10.8)
[2021-01-24 05:16] LABS: CREATININE 1.4 mg/dL (0.5-1.5); POTASSIUM 3.8 mmol/L (3.5-5.1)
[2021-01-24] MEDS: INSULIN HUMULIN R 100 UNIT/ML 3ML SQ SCH ×2 (05:39→12:13)
[2021-01-24] MEDS: ZOSYN 3.375GM+NS 50ML 50 ML IV SCH ×2 (05:39→15:41)
[2021-01-24 08:00] VITALS: BP 131/75
[2021-01-24] MEDS: PANTOPRAZOLE 40 MG/VIAL IVP SCH (10:19)
[2021-01-24] MEDS: LACTULOSE 20 GM/30 ML UDCUP PO SCH (10:19)
[2021-01-24 11:44] VITALS: BP 132/82
[2021-01-24 16:00] VITALS: BP 154/88
== END 2021-01-24 16:30 | disposition home or self-care (01) | DRG 393 ==
LOC: EDH 17:23 → EDHIP 21:38 → OBSVTOIN 21:38 → 3AH 01-22 22:40
PROVIDERS: ADMIT Internal Medicine Critical Care Medicine; ATTEND Internal Medicine Critical Care Medicine
PROC: 0DBH8ZZ Excision of Cecum, Via Natural or Artificial Opening Endoscopic (ICD-10-PCS; principal; 2021-01-23)
PROC: 0DBN8ZZ Excision of Sigmoid Colon, Via Natural or Artificial Opening Endoscopic (ICD-10-PCS; 2021-01-23)
DX: K63.5 Polyp of colon (principal); K57.31 Diverticulosis of large intestine without perforation or abscess with bleeding; N17.9 Acute kidney failure, unspecified; I48.20 Chronic atrial fibrillation, unspecified; I10 Essential (primary) hypertension; E78.5 Hyperlipidemia, unspecified; E11.9 Type 2 diabetes mellitus without complications; K59.00 Constipation, unspecified; D69.6 Thrombocytopenia, unspecified; K64.4 Residual hemorrhoidal skin tags; Z79.01 Long term (current) use of anticoagulants; Z79.899 Other long term (current) drug therapy; Z90.49 Acquired absence of other specified parts of digestive tract
CPT/HCPCS: 36415; 45385; 74176; 80048; 80053; 80076; 81003; 82270; 82550; 82948; 83036; 83540; 83550; 83874; 83880; 84484; 85025; 85027; 85384; 85610; 85730; 86677; 86850; 86900; 86901; 93005; C9113; G0378; J0360; J1815; J1885; J2001; J2405; J2543; J2704; J7030; J7040

== ENCOUNTER → 2024-05-22 | Outpatient (CLI) | payer OTHER ==
[~2024-05-22] MED LIST changes: -CHOL100040 PO; +CHOL500045 PO; +GABA-529 PO; -GLIP2.5T2 PO; +GLUC100019 PO; +IOHEXOL 350 MG/ML 100ML INFUS..BTL IV ONE; +LATA2.5D14 OP; -LATA7.5D OU; +LISI20TA24 PO; -METO25TA3 PO; +OMEP40CA21 PO; -PANT40TA PO; +TRAZ-187 PO
== END | disposition home or self-care (01) ==
LOC: RAH 09:51
PROVIDERS: ATTEND Internal Medicine
DX: N28.1 Cyst of kidney, acquired (principal); R31.9 Hematuria, unspecified; M47.815 Spondylosis without myelopathy or radiculopathy, thoracolumbar region; I70.0 Atherosclerosis of aorta; N40.0 Benign prostatic hyperplasia without lower urinary tract symptoms; K57.90 Diverticulosis of intestine, part unspecified, without perforation or abscess without bleeding
CPT/HCPCS: 74178; Q9967

== ENCOUNTER → 2025-02-22 | Outpatient (CLI) | payer OTHER ==
[~2025-02-22] MED LIST changes: -IOHEXOL 350 MG/ML 100ML INFUS..BTL IV ONE; -LATA2.5D14 OP; +LATA2.5D7 OP; +LEVO750T90 PO
--- NOTE | 2025-02-23 07:05 | HMCIMG ---
EXAMINATION: ULTRASOUND OF THE RETROPERITONEUM. CLINICAL HISTORY: UTI. COMPARISON: None. TECHNIQUE: Real-time grayscale ultrasound images of the kidneys. FINDINGS: The right kidney is relatively smaller in caliber and the left kidney is normal in caliber, the right kidney measures 8.6 x 5.4 x 5.2 cm and the left kidney measures 11.4 x 5.1 x 4.4 cm in its craniocaudal, AP, and transverse dimensions respectively. There is normal renal cortical thickness, and increased cortical echogenicity. There is no renal calculus or hydronephrosis. There is a simple cortical cyst that measures 2.5 x 2.4 x 1.6 cm in the right renal upper pole. There is a simple cortical cyst that measures 1.4 x 1.6 x 1.7 cm in the left renal mid pole. The urinary bladder is normal in caliber and wall thickness (0.30 cm). There are no calculi in the urinary bladder. Pre-void volume 234 cc and post-void volume is 51 cc. The prostate gland is bulky in caliber and measures 4.2 x 5.3 x 5.1 cm in the craniocaudal, AP, and transverse dimensions respectively with a volume of 61 cc. IMPRESSION: Relatively smaller right kidney. Bilateral renal parenchymal disease. Bilateral simple renal cortical cysts. No hydronephrosis. Moderate prostatic hypertrophy. Significant post-void residue. /Mary Alice
== END | disposition home or self-care (01) ==
LOC: RAH 08:22
PROVIDERS: ATTEND Internal Medicine
DX: N28.1 Cyst of kidney, acquired (principal); A41.9 Sepsis, unspecified organism; N39.0 Urinary tract infection, site not specified; N27.0 Small kidney, unilateral; N28.89 Other specified disorders of kidney and ureter; N40.0 Benign prostatic hyperplasia without lower urinary tract symptoms
CPT/HCPCS: 76770